=== PATIENT | male | born 1980 | race Caucasian/White ===

== ENCOUNTER → 2017-12-29 | Outpatient (CLI) | payer BC ==
--- NOTE | 2017-12-29 10:53 | DIAGNOSTIC IMAGING REPORT ---
ORBIT RADIOGRAPHS 3 VIEWS HISTORY: pre-MRI screening. COMPARISON: None. FINDINGS: There are no radiopaque foreign bodies identified within the orbits. IMPRESSION: No radiopaque foreign bodies identified within the orbits. Electronically signed by: Jose Metzger M.D. 12/29/2017 10:51 AM Dictated Date/Time: 12/29/2017 10:51 AM
--- NOTE | 2017-12-29 11:26 | DIAGNOSTIC IMAGING REPORT ---
LUMBAR SPINE W/O CONTRAST CLINICAL HISTORY: 37 years-old Male presenting with LOW BACK PAIN, paresthesia, pain radiating down the left leg and into the left side of the back. TECHNIQUE: Multisequence, multiplanar MR imaging of the lumbar spine was performed without the use of intravenous contrast. IV contrast: None. COMPARISON: None. FINDINGS: Localizer images: Unremarkable. Straightening of normal lumbar lordosis. Vertebral bodies maintain normal height, alignment, and bone marrow signal intensity. Intervertebral disc desiccation noted at several levels sparing the L1-2 disc. Multilevel degenerative changes further detailed below: L1-2: No significant spinal canal or neural foraminal narrowing. L2-3: Annular fissure (series 3 image 8) without significant disc bulge. No spinal canal or neural foraminal narrowing. L3-4: Focal disc extrusion with caudal migration. The disc fragment measures 15 x 10 x 9 mm and markedly effaces the left lateral recess with mass effect on the transiting left L4 nerve root. No significant neural foraminal narrowing at this level. L4-5: Annular lower fissure (series 3 image 7) with only minimal disc bulge. Disc bulge results in mild right neural foraminal narrowing. No significant spinal canal narrowing. L5-S1: Annular fissure with central focal disc protrusion. The protruded fragment measures 8 x 14 x 4 mm. This exerts mass effect on the transiting right S2 nerve root. Spinal cord ends in good position above the superior endplate of L1. Cauda equina normal in morphology apart from mass effect as detailed above. Paraspinal musculature normal. No epidural collection. No paraspinal muscular edema. IMPRESSION: 1. Multilevel degenerative changes with a focal disc extrusion with caudal migration at the L3-4 level resulting in marked effacement of the left lateral recess and mass effect on the transiting left L4 nerve root. This likely accounts for the patient's symptomatology. 2. Additional multilevel degenerative changes as detailed above. Electronically signed by: Jose Gomez M.D. 12/29/2017 11:24 AM Dictated Date/Time: 12/29/2017 11:16 AM
== END | disposition home or self-care (01) ==
LOC: C.RAD 10:31
PROVIDERS: ATTEND Family Medicine
DX: M51.16 Intervertebral disc disorders with radiculopathy, lumbar region (principal); M51.36 Other intervertebral disc degeneration, lumbar region; G89.29 Other chronic pain